=== PATIENT | male | born 1950 | race Caucasian/White ===

== ENCOUNTER 2019-05-04 20:23 | Emergency (ER) | payer MEDICARE ==
[~2019-05-04] VITALS: Ht 182.9 cm; Wt 100.0 kg
[2019-05-04] MEDS ORDERED: ZOL50T PO (20:41)
[2019-05-04] MEDS ORDERED: PROP60CA6 PO (20:41)
[2019-05-04] MEDS ORDERED: LEVO25TA7 PO (20:41)
--- NOTE | 2019-05-04 22:28 | NUR ---
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
--- NOTE | 2019-05-04 23:21 | NUR ---
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
[2019-05-04 23:37] VITALS: BP 121/82
== END 2019-05-04 23:40 | disposition home or self-care (01) ==
LOC: ER 20:24
DX: Z04.3 Encounter for examination and observation following other accident (principal); M19.90 Unspecified osteoarthritis, unspecified site; Z98.890 Other specified postprocedural states; Z79.899 Other long term (current) drug therapy; V89.2XXA Person injured in unspecified motor-vehicle accident, traffic, initial encounter; Y93.89 Activity, other specified; Y92.410 Unspecified street and highway as the place of occurrence of the external cause; Y99.8 Other external cause status
CPT/HCPCS: 99283